=== PATIENT | male | born 1960 | race African-American/Black ===

== ENCOUNTER 2025-04-07 11:48 | Emergency (ER) | payer OTHER ==
[~2025-04-07] VITALS: Ht 190.5 cm; Wt 100.0 kg
[2025-04-07 11:54] VITALS: O2SAT 100
[2025-04-07 11:55] VITALS: BP 165/119; PULSE 117; RESP 16; TEMP 36.7; O2SAT 99
== END 2025-04-07 13:00 | disposition home or self-care (01) ==
LOC: ER 11:48
DX: S01.81XD Laceration without foreign body of other part of head, subsequent encounter (principal); E11.9 Type 2 diabetes mellitus without complications; I10 Essential (primary) hypertension; X58.XXXD Exposure to other specified factors, subsequent encounter
CPT/HCPCS: 99282; Z7610